=== PATIENT | female | born 1965 | race Caucasian/White ===

== ENCOUNTER 2017-06-18 10:45 | Day surgery (SDC) | payer OTHER ==
[~2017-06-18 10:45] MED LIST: EPHEDrine SULFATE 50 MG/5 ML SYG; SOD CHLORIDE 0.9% 1,000 ML IV
[2017-06-18] MEDS ORDERED: BUPIVACAINE LIPOSOME/PF 266 MG/20 ML VIAL INFIL (11:30)
[2017-06-18 11:37] LABS: ADD MAN DIFF? NO
[2017-06-18 11:41] LABS: WHITE BLOOD COUNT 4.7 10^3/ul (4.8-10.8)
[2017-06-18 11:41] LABS: BASOPHILS % 0.6 % (0.0-2.0); EOSINOPHILS # 0.1 10^3/ul (0.0-0.5); EOSINOPHILS % 1.3 % (0.0-7.0); HEMATOCRIT 41.9 % (37.0-47.0); HEMOGLOBIN 14.5 g/dl (12.0-16.0); LYMPHOCYTES # 1.7 10^3/ul (0.8-2.9); LYMPHOCYTES % 35.9 % (15.0-51.0); MEAN CORPUSCULAR HEMOGLOBIN 31.1 pg (29.0-33.0); MEAN CORPUSCULAR HGB CONC 34.6 g/dl (32.0-37.0); MEAN CORPUSCULAR VOLUME 89.9 fl (82.0-101.0); MEAN PLATELET VOLUME 10.2 fl (7.4-10.4); MONOCYTE # 0.4 10^3/ul (0.3-0.9); MONOCYTES % 7.5 % (0.0-11.0); NEUTROPHIL # 2.6 10^3/ul (1.6-7.5); NEUTROPHILS % 54.5 % (39.0-77.0); PLATELET COUNT 235 10^3/UL (140-415); RED BLOOD COUNT 4.66 10^6/ul (4.20-5.40); RED CELL DISTRIBUTION WIDTH 12.4 % (11.5-14.5)
[2017-06-18 11:46] LABS: INR 0.95; PROTIME 12.8 Sec (11.9-14.9)
[2017-06-18 11:52] LABS: ALANINE AMINOTRANSFERASE 36 IU/L (13-69); ALBUMIN 4.3 g/dl (3.3-4.9); ALBUMIN/GLOBULIN RATIO 1.26; ALKALINE PHOSPHATASE 112 IU/L (42-121); ANION GAP 20 (8-16); ASPARTATE AMINO TRANSFERASE 22 IU/L (15-46); BILIRUBIN,INDIRECT 0.4 mg/dl (0-1.1); BILIRUBIN,TOTAL 0.4 mg/dl (0.2-1.3); CARBON DIOXIDE 22 mmol/L (21-31); CHLORIDE 110 mmol/L (97-110); GLUCOSE 89 mg/dl (70-220); TOTAL PROTEIN 7.7 g/dl (6.1-8.1)
[2017-06-18 12:12] LABS: BLOOD UREA NITROGEN 13 mg/dl (7-20); CALCIUM 8.9 mg/dl (8.4-10.2); CREATININE 0.48 mg/dl (0.44-1.00); POTASSIUM 3.2 mmol/L (3.5-5.1)
[2017-06-18 12:14] LABS: SODIUM 149 mmol/L (135-144)
[2017-06-18] MEDS ORDERED: EPINEPHrine 1 MG INJ (15:36)
[2017-06-18] MEDS ORDERED: BUPIVACAINE 0.5% (SDV) 30 ML INJ (15:36)
[2017-06-18] MEDS ORDERED: GENTAMICIN 80 MG INJ (15:36)
[2017-06-18] MEDS ORDERED: FENTAnyl 50 MCG/ML VIAL (15:37)
[2017-06-18] MEDS ORDERED: CEFAZOLIN 1 GM INJ (15:37)
[2017-06-18] MEDS ORDERED: PROPOFOL 20 ML (15:37)
[2017-06-18] MEDS ORDERED: LIDOCAINE 1%/EPI 30 ML INJ (15:37)
[2017-06-18] MEDS ORDERED: MIDAZOLAM 1 MG/ML 2 ML INJ ×2 (15:37→15:54)
[2017-06-18] MEDS ORDERED: ONDANSETRON 4 MG INJ (15:38)
[2017-06-18] MEDS ORDERED: METOCLOPRAMIDE 10 MG INJ (15:38)
[2017-06-18] MEDS ORDERED: DEXAMETHASONE 4 MG/ML 1 ML INJ (15:47)
[2017-06-18] MEDS ORDERED: HYDROmorphONE (0.2 MG/ML) 10ML SYG IV (16:00)
[2017-06-18] MEDS ORDERED: HYDROCODONE/APAP (5/325) TAB PO (16:00)
[2017-06-18] MEDS ORDERED: DIPHENHYDRAMINE 50 MG INJ IV (16:00)
[2017-06-18] MEDS ORDERED: morphine 2 MG INJ IV (16:00)
[2017-06-18] MEDS ORDERED: ONDANSETRON 4 MG INJ IV (16:00)
[2017-06-18] MEDS ORDERED: MEPERIDINE 25 MG INJ IV (16:00)
[2017-06-18] MEDS: EPINEPHrine 1 MG INJ SC (17:26)
[2017-06-18] MEDS: SODIUM CHLORIDE 0.9% 1L IRRIG IRR (17:29)
[2017-06-18] MEDS: GENTAMICIN 80 MG INJ IVPB (17:31)
[2017-06-18] MEDS: POLYMYXIN/BACITRACIN 1L IRRIG IRR (17:31)
[2017-06-18] MEDS ORDERED: ALBUTEROL 0.5% (NEB) 2.5 MG/0.5 ML AMP (18:52)
[2017-06-18] MEDS: ONDANSETRON 4 MG INJ IV ×2 (18:59→20:30)
[2017-06-18] MEDS: HYDROmorphONE (0.2 MG/ML) 10ML SYG IV ×3 (18:59→20:31)
[2017-06-18] MEDS: ALBUTEROL 0.083% (NEB) 2.5 MG/3 ML AMP HHN (19:06)
== END 2017-06-18 20:45 | disposition home or self-care (01) ==
LOC: SDS 10:45
DX: Z42.1 Encounter for breast reconstruction following mastectomy (principal); Z85.3 Personal history of malignant neoplasm of breast; I10 Essential (primary) hypertension; J45.909 Unspecified asthma, uncomplicated
CPT/HCPCS: 19330; 80053; 85025; 85610; 85730; 88307; 94664

== ENCOUNTER 2017-07-30 06:35 | Day surgery (SDC) | payer OTHER ==
[2017-07-30] MEDS ORDERED: LIDOCAINE 4% SOLUTION 50 ML BTL (07:47)
[2017-07-30] MEDS ORDERED: DIPHENHYDRAMINE 50 MG INJ (08:09)
[2017-07-30] MEDS ORDERED: MIDAZOLAM 1 MG/ML 2 ML INJ ×3 (08:33)
[2017-07-30] MEDS ORDERED: FENTAnyl 50 MCG/ML VIAL (08:33)
== END 2017-07-30 15:06 | disposition home or self-care (01) ==
LOC: GIL 06:35
DX: Z86.010 Personal history of colon polyps (principal); K64.8 Other hemorrhoids; K57.90 Diverticulosis of intestine, part unspecified, without perforation or abscess without bleeding; K21.0 Gastro-esophageal reflux disease with esophagitis; K44.9 Diaphragmatic hernia without obstruction or gangrene; K29.70 Gastritis, unspecified, without bleeding
CPT/HCPCS: 43239; 88305

== ENCOUNTER → 2017-08-01 | Emergency (ER) | payer OTHER ==
[2017-08-01] MEDS: morphine 4 MG/ML VIAL IV (23:16)
[2017-08-01] MEDS: SOD CHLORIDE 0.9% 1,000 ML IV (23:17)
[2017-08-01] MEDS: ONDANSETRON 4 MG INJ IV (23:17)
[2017-08-01] MEDS: LORAZEPAM 2 MG INJ IV (23:17)
[2017-08-01 23:30] LABS: ADD MAN DIFF? NO
[2017-08-01 23:34] LABS: WHITE BLOOD COUNT 6.9 10^3/ul (4.8-10.8)
[2017-08-01 23:34] LABS: BASOPHILS % 0.6 % (0.0-2.0); EOSINOPHILS # 0.2 10^3/ul (0.0-0.5); EOSINOPHILS % 2.6 % (0.0-7.0); HEMOGLOBIN 16.1 g/dl (12.0-16.0); LYMPHOCYTES # 2.7 10^3/ul (0.8-2.9); LYMPHOCYTES % 39.3 % (15.0-51.0); MEAN CORPUSCULAR HGB CONC 34.3 g/dl (32.0-37.0); MEAN CORPUSCULAR VOLUME 90.4 fl (82.0-101.0); MEAN PLATELET VOLUME 9.9 fl (7.4-10.4); MONOCYTE # 0.5 10^3/ul (0.3-0.9); MONOCYTES % 7.8 % (0.0-11.0); NEUTROPHIL # 3.4 10^3/ul (1.6-7.5); NEUTROPHILS % 49.6 % (39.0-77.0); PLATELET COUNT 222 10^3/UL (140-415)
[2017-08-01 23:48] LABS: ADD UMIC YES; UR AMORPHOUS CRYSTAL FEW /HPF (NONE SEEN); UR ASCORBIC ACID NEGATIVE (NEGATIVE); UR BACTERIA FEW /HPF (NONE SEEN); UR BILIRUBIN (Dip) NEGATIVE (NEGATIVE); UR BLOOD (Dip) 1+ mg/dL (NEGATIVE); UR CALCIUM OXALATE CRYSTAL FEW /HPF (NONE SEEN); UR CLARITY CLOUDY (CLEAR); UR COLOR YELLOW (YELLOW); UR GLUCOSE (Dip) NEGATIVE (NEGATIVE); UR KETONES (Dip) NEGATIVE (NEGATIVE); UR LEUKOCYTE ESTERASE (Dip) 3+ Leu/ul (NEGATIVE); UR MUCUS FEW /HPF (NONE SEEN); UR NITRITE (Dip) NEGATIVE (NEGATIVE); UR RBC 4 /HPF (0-5); UR SPECIFIC GRAVITY (Dip) 1.011 (1.003-1.030); UR SQUAMOUS EPITHELIAL CELL FEW /HPF (FEW); UR TOTAL PROTEIN (Dip) NEGATIVE (NEGATIVE); UR UROBILINOGEN (Dip) NEGATIVE (NEGATIVE); UR WBC 2 /HPF (0-5)
[2017-08-01 23:55] LABS: INR 0.97
[2017-08-01 23:56] LABS: PARTIAL THROMBOPLASTIN TIME 28.7 Sec (25.0-35.0)
[2017-08-01 23:59] LABS: ALANINE AMINOTRANSFERASE 32 IU/L (13-69); ALBUMIN 4.3 g/dl (3.3-4.9); ALBUMIN/GLOBULIN RATIO 1.26; ALKALINE PHOSPHATASE 123 IU/L (42-121); ANION GAP 14 (8-16); ASPARTATE AMINO TRANSFERASE 20 IU/L (15-46); BILIRUBIN,INDIRECT 0.6 mg/dl (0-1.1); BILIRUBIN,TOTAL 0.6 mg/dl (0.2-1.3); BLOOD UREA NITROGEN 10 mg/dl (7-20); CALCIUM 9.6 mg/dl (8.4-10.2); CARBON DIOXIDE 29 mmol/L (21-31); CHLORIDE 106 mmol/L (97-110); CREATININE 0.49 mg/dl (0.44-1.00); GLUCOSE 103 mg/dl (70-220); LIPASE 86 U/L (23-300); POTASSIUM 3.2 mmol/L (3.5-5.1); SODIUM 146 mmol/L (135-144); TOTAL PROTEIN 7.7 g/dl (6.1-8.1)
[2017-08-02] MEDS: POTASSIUM CHLORIDE (SR) 20 MEQ TAB PO (00:25)
== END | disposition home or self-care (01) ==
LOC: FTE 21:19
DX: N39.0 Urinary tract infection, site not specified (principal); E87.6 Hypokalemia; J45.909 Unspecified asthma, uncomplicated; R10.9 Unspecified abdominal pain; Z85.3 Personal history of malignant neoplasm of breast
CPT/HCPCS: 36415; 80053; 81001; 81025; 83690; 85025; 85610; 85730; 96374; 96375; 99284-25